=== PATIENT | male | born 1980 | race Caucasian/White ===

== ENCOUNTER → 2019-11-10 | Outpatient (CLI) | payer BC ==
[2019-11-10 08:49] LABS: HCT 53.5 % (39.0-53.0); HGB 17.9 gm/dL (13.0-17.5); MCH 28.9 pg (25.0-35.0); MCHC 33.4 g/dL (31.0-37.0); MCV 86.7 fL (80.0-100.0); Mean Platelet Volume 7.1; Platelet Count 276 k/uL (150-450); RBC 6.17 m/uL (4.30-5.90); RDW 12.5 % (11.5-15.5); WBC 8.2 k/uL (3.8-10.6)
[2019-11-10 09:32] LABS: Eosinophils # (M) 0.41 k/uL (0-0.7); Lymphocytes # (M) 3.28 k/uL (1.0-4.8); Monocytes # (M) 1.15 k/uL (0-1.0); Neutrophils # (M) 3.36 k/uL (1.3-7.7); Neutrophils % (M) 41 %; Nucleated Red Blood Cells 0 /100 WBC (0-0); Total Cells Counted 100
[2019-11-10 17:24] LABS: Thyroid Peroxidase Antibodies 67.5 U/mL (0.0-60.0)
== END | disposition home or self-care (01) ==
LOC: LABWHC1 07:46
PROVIDERS: ATTEND Allergy & Immunology
DX: L50.9 Urticaria, unspecified (principal)
CPT/HCPCS: 36415; 82785; 85025; 86003; 86160; 86376; 86800; 88184; 88185